=== PATIENT | male | born 1980 | race Caucasian/White ===

== ENCOUNTER 2019-07-21 17:25 | Emergency (ER) | payer OTHER ==
[~2019-07-21] VITALS: Ht 180.3 cm; Wt 90.3 kg
[2019-07-21 17:30] VITALS: BP 156/103
[2019-07-21 18:10] VITALS: BP 156/103
== END 2019-07-21 18:10 | disposition home or self-care (01) ==
LOC: MED 17:25
DX: B34.9 Viral infection, unspecified (principal); R05 Cough
CPT/HCPCS: 99283